=== PATIENT | male | born 1965 | race Caucasian/White ===

== ENCOUNTER 2017-07-17 14:13 | Emergency (ER) | payer OTHER ==
[2017-07-17] MEDS ORDERED: Folic Acid 1 MG Tab PO ONE (15:07)
[2017-07-17] MEDS ORDERED: Sodium Chloride 0.9% 1,000 ML IV ONE (15:07)
[2017-07-17] MEDS ORDERED: Thiamine 100 MG Tab PO ONE (15:07)
[2017-07-17] MEDS ORDERED: LORazepam 2 MG/ML MDV IVPUSH ONE (15:08)
[2017-07-17] MEDS ORDERED: Multivitamin Tab PO SCH (15:15)
[2017-07-17] MEDS ORDERED: Sodium Chloride 0.9% 10 ML Syringe FLUSH PRN (15:38)
--- NOTE | 2017-07-17 16:44 | EDM.PDOC ---
ED HPI GENERAL MEDICAL PROBLEM - General Chief Complaint: General Stated Complaint: LEFT SIDE PAIN, FELL ON 07/14/17 Time Seen by Provider: 07/17/17 14:21 Source of Information: Reports: Patient - History of Present Illness INITIAL COMMENTS - FREE TEXT/NARRATIVE: 51 y.o.w.m with Chronic ETOH abuse, came at the ed due to "shakiness" Last ETOH intake was last night. Pt fell 2 weks ago and "dislocated his rib" Pt is a poor historian, no family is present. Pt denies any other acute medical issues at this time. BP 179/104 pulse 73 Temp 37.2 Onset: Unknown/Unsure Onset Date: 07/16/17 Onset Time: 08:00 Duration: Day(s):, Intermittent Location: Reports: Generalized Quality: Reports: Ache Severity: Mild Improves with: Reports: Medication, Rest Worsens with: Reports: Movement Context: Reports: Other (etoh abuse, chronic. Fall one week ago) Associated Symptoms: Reports: No Other Symptoms Left Middle Chest Pain Score (Numeric/FACES): 2 - Related Data Allergies Allergy/AdvReac Type Severity Reaction Status Date / Time No Known Allergies Allergy Verified 07/17/17 14:21 Home Meds: Home Meds Acetaminophen [Tylenol] 650 mg PO ASDIRECTED PRN 07/17/17 [History] Naproxen 500 mg PO ASDIRECTED PRN 07/17/17 [History] traMADol [Ultram] 50 mg PO Q6H PRN 07/17/17 [History] Past Medical History Cardiovascular History: Reports: Hypertension Musculoskeletal History: Reports: Arthritis, Back Pain, Chronic, Neck Pain, Chronic - Past Surgical History GI Surgical History: Reports: Appendectomy Social & Family History - Family History Family Medical History: Noncontributory - Tobacco Use Smoking Status *Q: Former Smoker Years of Tobacco use: 30 Packs/Tins Daily: 1 Used Tobacco, but Quit: Yes Month Tobacco Last Used: 02/2016 - Caffeine Use Caffeine Use: Reports: None - Alcohol Use Days Per Week of Alcohol Use: 7 Number of Drinks Per Day: 3 Total Drinks Per Week: 21 Date of Last Drink: 07/17/17 Time of Last Drink: 19:00 - Recreational Drug Use Recreational Drug Use: No ED ROS GENERAL - Review of Systems Review Of Systems: See Below Constitutional: Reports: No Symptoms HEENT: Reports: No Symptoms Respiratory: Reports: No Symptoms Cardiovascular: Reports: No Symptoms Endocrine: Reports: No Symptoms GI/Abdominal: Reports: No Symptoms : Reports: No Symptoms Musculoskeletal: Reports: No Symptoms Skin: Reports: No Symptoms Neurological: Reports: Tremors Psychiatric: Reports: No Symptoms, Anxiety Hematologic/Lymphatic: Reports: No Symptoms Immunologic: Reports: No Symptoms ED EXAM, GENERAL - Physical Exam Exam: See Below Exam Limited By: No Limitations General Appearance: Alert, WD/WN, Mild Distress Eye Exam: Bilateral Eye: Normal Inspection Ears: Normal External Exam Ear Exam: Bilateral Ear: Auricle Normal Nose: Normal Inspection, Normal Mucosa Throat/Mouth: No Airway Compromise Head: Atraumatic, Normocephalic Neck: Normal Inspection, Supple, Non-Tender Respiratory/Chest: No Respiratory Distress, Lungs Clear Cardiovascular: Normal Peripheral Pulses, Regular Rate, Rhythm Peripheral Pulses: 1+: Femoral (L), Femoral (R) GI/Abdominal: Normal Bowel Sounds, Distended (ascites), Hepatomegaly (Male) Exam: Deferred Rectal (Males) Exam: Deferred Back Exam: Normal Inspection Extremities: Normal Inspection, Normal Range of Motion Neurological: Alert, Oriented, CN II-XII Intact, Normal Cognition Psychiatric: Normal Affect, Normal Mood Skin Exam: Warm, Dry, Intact, Normal Color, No Rash Lymphatic: No Adenopathy Course - Vital Signs Text/Narrative:: 51 y.o.w.m with Chronic ETOH abuse, came at the ed due to "shakiness" Last ETOH intake was last night. Pt fell 2 weks ago and "dislocated his rib" Pt is a poor historian, no family is present. Pt denies any other acute medical issues at this time. BP 179/104 pulse 73 Temp 37.2. 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 Last Recorded V/S: Last Vital Signs Temp 37.2 C 07/17/17 14:21 Pulse 73 07/17/17 14:21 Resp 16 07/17/17 14:21 BP 179/106 H 07/17/17 14:21 Pulse Ox 100 07/17/17 14:21 - Orders/Labs/Meds Orders: Active Orders 24 hr Category Date Time Status Multivitamins [Tab-A-Sonia] Med 07/17/17 15:15 Active 1 tab PO BEDTIME Sodium Chloride 0.9% [Saline Flush] Med 07/17/17 15:38 Active 10 ml FLUSH ASDIRECTED PRN cloNIDine [Catapres] Med 07/17/17 17:15 Once 0.1 mg PO ONETIME ONE Saline Lock Insert [OM.PC] Routine Oth 07/17/17 15:38 Ordered Medication Orders Clonidine HCl (Catapres) 0.1 mg PO ONETIME ONE Stop: 07/17/17 17:16 Multivitamins/Minerals/Vitamin C (Tab-A-Sonia) 1 tab PO BEDTIME DEMETRIS Last Admin: 07/17/17 15:51 Dose: 1 tab Sodium Chloride (Saline Flush) 10 ml FLUSH ASDIRECTED PRN PRN Reason: Keep Vein Open Last Admin: 07/17/17 15:39 Dose: 10 ml Labs: Laboratory Tests 07/17/17 07/17/17 07/17/17 Range/Units 15:25 15:25 15:25 WBC 5.7 (4.5-12.0) X10-3/uL RBC 4.72 (4.30-5.75) x10(6)uL Hgb 14.3 (11.5-15.5) g/dL Hct 43.1 (30.0-51.3) % MCV 91.3 (80-96) fL MCH 30.3 (27.7-33.6) pg MCHC 33.1 (32.2-35.4) g/dL RDW 15.1 (11.5-15.5) % Plt Count 118 L (125-369) X10(3)uL MPV 7.8 (7.4-10.4) fL Neut % (Auto) 71.4 (46-82) % Lymph % (Auto) 20.9 (13-37) % Mckenzie % (Auto) 6.6 (4-12) % Eos % (Auto) 1 (1.0-5.0) % Baso % (Auto) 1 (0-2) % Neut # (Auto) 4.1 (1.6-8.3) # Lymph # (Auto) 1.2 (0.6-5.0) # Mckenzie # (Auto) 0.4 (0.0-1.3) # Eos # (Auto) 0.0 (0.0-0.8) # Baso # (Auto) 0.0 (0.0-0.2) # Sodium 139 (135-145) mmol/L Potassium 3.8 (3.5-5.3) mmol/L Chloride 103 (100-110) mmol/L Carbon Dioxide 24 (23-29) mmol/L BUN 6 (5-20) mg/dL Creatinine 0.8 (0.6-1.3) mg/dL Est Cr Clr Drug Dosing 110.26 mL/min Estimated GFR (MDRD) > 60 (>60) BUN/Creatinine Ratio 7.5 L (9-20) Glucose 135 H (80-116) mg/dL Calcium 9.3 (8.6-10.2) mg/dL Total Bilirubin 1.9 H (0.1-1.3) mg/dL Direct Bilirubin 0.4 H (0.1-0.2) mg/dL AST 59 H (5-27) IU/L ALT 32 H (14-26) IU/L Alkaline Phosphatase 82 (56-112) IU/L Total Protein 7.7 (6.0-8.0) g/dL Albumin 3.7 (3.5-5.2) g/dL Ethyl Alcohol < 0.01 (<0.01) % Meds: Medications Generic Name Dose Route Start Last Admin Trade Name Freq PRN Reason Stop Dose Admin Clonidine HCl 0.1 mg 07/17/17 17:15 Catapres PO 07/17/17 17:16 ONETIME ONE Multivitamins/Minerals/Vitamin C 1 tab 07/17/17 15:15 07/17/17 15:51 Tab-A-Sonia PO 1 tab BEDTIME DEMETRIS Administration Sodium Chloride 10 ml 07/17/17 15:38 07/17/17 15:39 Saline Flush FLUSH 10 ml ASDIRECTED PRN Administration Keep Vein Open Discontinued Medications Generic Name Dose Route Start Last Admin Trade Name Freq PRN Reason Stop Dose Admin Folic Acid 1 mg 07/17/17 15:07 07/17/17 15:51 Folic Acid PO 07/17/17 15:08 1 mg ONETIME ONE Administration Sodium Chloride 1,000 mls @ 999 mls/hr 07/17/17 15:07 07/17/17 15:42 Normal Saline IV 07/17/17 16:07 999 mls/hr .BOLUS ONE Administration Lorazepam 1 mg 07/17/17 15:08 07/17/17 15:53 Ativan IVPUSH 07/17/17 15:09 1 mg ONETIME ONE Administration Thiamine HCl 100 mg 07/17/17 15:07 07/17/17 15:51 Vitamin B-1 PO 07/17/17 15:08 100 mg ONETIME ONE Administration Departure - Departure Time of Disposition: 16:46 Disposition: Home, Self-Care 01 Condition: Good Clinical Impression: Dehydration Withdrawal symptoms, alcohol Qualifiers: Complication of substance-induced condition: uncomplicated Qualified Code(s): F10.230 - Alcohol dependence with withdrawal, uncomplicated - Discharge Information Referrals: Gnio Chi MD [Primary Care Provider] - Forms: ED Department Discharge Additional Instructions: Please avoid ETOH, please increase water intake, please f/u with your PMD, Please come back if your symptoms get worse acutely - My Orders Last 24 Hours: My Active Orders 07/17/17 15:15 Multivitamins [Tab-A-Sonia] 1 tab PO BEDTIME 07/17/17 15:38 Sodium Chloride 0.9% [Saline Flush] 10 ml FLUSH ASDIRECTED PRN Saline Lock Insert [OM.PC] Routine 07/17/17 17:15 cloNIDine [Catapres] 0.1 mg PO ONETIME ONE - Assessment/Plan Last 24 Hours: My Active Orders 07/17/17 15:15 Multivitamins [Tab-A-Sonia] 1 tab PO BEDTIME 07/17/17 15:38 Sodium Chloride 0.9% [Saline Flush] 10 ml FLUSH ASDIRECTED PRN Saline Lock Insert [OM.PC] Routine 07/17/17 17:15 cloNIDine [Catapres] 0.1 mg PO ONETIME ONE
[2017-07-17] MEDS ORDERED: cloNIDine 0.1 MG Tab PO ONE (17:15)
[2017-07-17 17:20] VITALS: BP 178/111
== END 2017-07-17 17:33 | disposition home or self-care (01) ==
LOC: FB.ED 14:13
DX: E86.0 Dehydration (principal); F10.230 Alcohol dependence with withdrawal, uncomplicated; R18.8 Other ascites; R25.1 Tremor, unspecified; M19.90 Unspecified osteoarthritis, unspecified site; Z90.89 Acquired absence of other organs; Z87.891 Personal history of nicotine dependence
CPT/HCPCS: 36415; 80048; 80076; 85025; 96361; 96374; 99284; A9270; G0480; J2060; J7040; J7050